=== PATIENT | male | born 1960 | race Caucasian/White ===

== ENCOUNTER → 2024-10-01 | Outpatient (CLI) | payer OTHER ==
--- NOTE | 2024-10-01 12:32 | CT ---
EXAMINATION TYPE: CT chest w con CT DLP: 503 mGycm, Automated exposure control for dose reduction was used. DATE OF EXAM: 10/01/2024 12:13 PM COMPARISON: None CLINICAL INDICATION:Male, 63 years old with history of R09 COUGH F17.22 NICOTINE DEPENDENCE; PHH, TOB ACCO USE TECHNIQUE: Multiple axial images were obtained through the chest following the administration of 100 cc of Isovue 300. . Coronal and sagittal reformats reviewed. FINDINGS: LUNGS/ PLEURA: Effusion, pneumothorax, or focal consolidation. A few scattered minimal regions of sub segmental atelectasis. Elevation of the right hemidiaphragm. A 3.9 mm left upper lobe groundglass pul monary nodule (series 4, image 24). Minimal centrilobular emphysematous changes. AIRWAY: Patent and unremarkable.. HEART: Size within normal limits. No pericardial effusion. MEDIASTINUM: No gross evidence of adenopathy. VASCULATURE: No aortic aneurysm. MUSCULOSKELETAL: No acute osseous abnormalities. Dextrocurvature of the thoracic spine. Multilevel pr ominent anterior osteophytes of the lower thoracic spine and upper lumbar spine. SOFT TISSUES/LYMPH NODES: Unremarkable. LOWER NECK: No significant findings. UPPER ABDOMEN: Small hiatal hernia. IMPRESSION: 1. No acute thoracic process. 2. Left upper lobe 3.9 mm groundglass pulmonary nodule. No routine follow-up required. 3. Minimal COPD changes. [facility], , 10/01/2024 12:29 PM
== END | disposition home or self-care (01) ==
LOC: RADCTMAIN 11:37
PROVIDERS: ATTEND Family Medicine
DX: J44.9 Chronic obstructive pulmonary disease, unspecified (principal); F17.220 Nicotine dependence, chewing tobacco, uncomplicated; R91.1 Solitary pulmonary nodule
CPT/HCPCS: 71260; Q9967